=== PATIENT | male | born 2000 ===

== ENCOUNTER 2021-08-18 11:52 | Emergency (ER) | payer SELFPAY ==
[2021-08-18 12:37] VITALS: BP 120/65
--- NOTE | 2021-08-18 12:42 | Emergency Department Report ---
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 Due to findings the following was ordered: no life threat MSE to PCP ED Disposition for MSE Clinical Impression: Chest wall pain, chronic Condition: Stable Referrals: BUD RASMUSSEN MD [Staff Physician] - 3-5 Days
== END 2021-08-19 19:31 | disposition home or self-care (01) ==
LOC: ED 11:52
DX: R07.89 Other chest pain (principal)
CPT/HCPCS: 99282